=== PATIENT | female | born 2000 | race African-American/Black ===

== ENCOUNTER 2025-06-24 21:20 | Emergency (ER) | payer OTHER, MEDICAID, SELFPAY ==
[2025-06-24 21:21] VITALS: BP 121/105; PULSE 103; RESP 25; TEMP 36.8; O2SAT 97; BMI 46.2
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
[2025-06-24 22:02] LABS: Hematocrit 41.9 % (37-47); Hemoglobin 14.2 g/dL (12.0-15.0); Immature Granulocytes Count 0.070 X10^3/uL (0.0-0.0); Mean Corp Hgb Conc 33.9 g/dL (32-36); Mean Corpuscular Volume 85.7 fL (81-99); Mean Platelet Vol. 10.8 fl (6.2-12.0); NRBC Flagged by Analyzer 0 % (0-5); Platelet Count 351 K/mm3 (150-450); RBC Distribution Width CV 14.2 % (11.6-14.6); RBC Distribution Width SD 43.8 fl (35.1-43.9); Red Blood Count 4.89 M/mm3 (4.2-5.4); White Blood Count 14.7 K/mm3 (4.4-11.0)
--- NOTE | 2025-06-24 22:06 | RAD_ITS ---
PROCEDURE: HUMERUS MIN 2 VIEWS 06/24/2025 REASON FOR EXAM: INJURY/PAIN TECHNIQUE: Procedure Code: RADHUM Modality: DX Procedure: HUMERUS MIN 2 VIEWS Laterality: Right COMPARISON: None. FINDINGS: No acute fracture or dislocation. Alignment is anatomic. Preserved visualized joint spaces. No aggressive osseous lesion. No marked soft tissue swelling or radiopaque foreign body. RAD/Humerus min 2 Views IMPRESSION: No acute fracture or dislocation. Reading Location: [id number]
[2025-06-24 22:11] LABS: Internal QC Validated? YES +Cl - CLEAR BKGD; Pregnancy, Serum, hCG Quali. NEGATIVE Negative
[2025-06-24 22:20] VITALS: BP 137/90; PULSE 87; RESP 18; O2SAT 98
[2025-06-24] MEDS: 0.9% Normal Saline (1000mL) 1,000 ML 1000 ML IV (22:20)
[2025-06-24 22:26] LABS: Anion Gap 14 (5-15); BUN 8 mg/dL (4-19); BUN/Creat Ratio 10.3 RATIO (10-20); Calcium,Total 9.6 mg/dL (7.6-11.0); Carbon Dioxide 21.9 mmol/L (21.0-32.0); Chloride 102 mmol/L (98-108); Estimated Creatinine Clearance 132.18 ml/min (50-250); Glucose 99 mg/dL (70-99); Potassium 3.4 mmol/L (3.3-5.1)
[2025-06-24 23:00] VITALS: BP 121/83; PULSE 98; RESP 18; O2SAT 98
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
[2025-06-24 23:11] VITALS: BP 121/83; PULSE 99; RESP 18; TEMP 36.6; O2SAT 99
== END 2025-06-24 23:46 | disposition home or self-care (01) ==
PROVIDERS: Emergency Provider Emergency Medicine; Visit Provider Emergency Medicine
DX: S09.90XA Unspecified injury of head, initial encounter (principal); S16.1XXA Strain of muscle, fascia and tendon at neck level, initial encounter; S40.021A Contusion of right upper arm, initial encounter; S20.20XA Contusion of thorax, unspecified, initial encounter; J45.909 Unspecified asthma, uncomplicated; D72.829 Elevated white blood cell count, unspecified; V43.52XA Car driver injured in collision with other type car in traffic accident, initial encounter
CPT/HCPCS: 70450; 71250; 72125; 73060; 74176; 80048; 84703; 85025; 96361; 96374; 96375; 99285; J2405